=== PATIENT | male | born 1970 | race Two or more races ===

== ENCOUNTER 2021-05-18 08:02 | Day surgery (SDC) | payer OTHER ==
[2021-05-16 14:26] VITALS: BMI 31.0
[2021-05-18 09:39] VITALS: TEMP 98.2
[2021-05-18 10:00] VITALS: BP 119/71; PULSE 66
== END 2021-05-18 09:55 | disposition home or self-care (01) ==
LOC: FASU-ENDO 08:02
PROVIDERS: ATTEND Internal Medicine Gastroenterology
PROC: 0DJD8ZZ Inspection of Lower Intestinal Tract, Via Natural or Artificial Opening Endoscopic (ICD-10-PCS; principal; 2021-05-18 08:59)
DX: Z12.11 Encounter for screening for malignant neoplasm of colon (principal); D12.0 Benign neoplasm of cecum; K57.30 Diverticulosis of large intestine without perforation or abscess without bleeding
CPT/HCPCS: 88305-TC